=== PATIENT | female | born 1985 | race Caucasian/White ===

== ENCOUNTER 2017-10-29 12:30 | Outpatient (RCR) | payer BC, MEDICAID, SELFPAY | END 2017-11-09 23:59 | LOC: DC 12:30 | PROVIDERS: Visit Provider Obstetrics & Gynecology | DX: O24.410 Gestational diabetes mellitus in pregnancy, diet controlled (principal); Z71.3 Dietary counseling and surveillance | CPT/HCPCS: 97802; G0108 ==

== ENCOUNTER 2018-04-21 11:45 | Outpatient (CLI) | payer BC, MEDICAID, SELFPAY ==
[2018-04-21 11:59] VITALS: BMI 40.1
[2018-04-21] MEDS: Betamethasone/Betamethasone 30 MG/5 ML Vial 12 MG IM (12:20)
[2018-04-21] MEDS: Lactated Ringers 1,000 ML 999 ML IV (12:21)
[2018-04-21 13:06] LABS: Bedside Glucose 94 mg/dL (70-110)
[2018-04-21 13:53] LABS: Group B Strep DNA By PCR POSITIVE (Negative); Probe Check PASS
[2018-04-21 14:55] LABS: Absolute Lymphocyte Count 0.75 X10^3/ul (0.83-4.51); Absolute Neutrophil Count 9.2 X10^3/uL (2.0-7.7); Basophil# 0.01 X10^3/uL; Basophil% 0.1 % (0-1); Eosinophil# 0.01 X10^3/uL; Eosinophils% 0.1 % (0-5); Hematocrit 34.3 % (37-47); Hemoglobin 10.2 g/dl (12.0-15.0); Lymphocyte # 0.75 X10^3/ul (4.0); Lymphocyte % 7.3 % (19-41); Mean Corp Hgb Conc 29.7 g/gl (32-36); Mean Corpuscular Hgb 22.2 pg (27.0-32.0); Mean Corpuscular Volume 74.7 fL (81-99); Mean Platelet Vol. 9.6 fl (6.2-12.0); Monocyte# 0.25 X10^3/uL; Monocyte% 2.4 % (0-10); Neutrophil # 9.23 X10^3/uL (2.7-7.7); Neutrophil % 89.9 % (47-70); POSITIVE COUNT NO; POSITIVE DIFFERENTIAL NO; POSITIVE MORPHOLOGY YES; Platelet Count 238 K/mm3 (150-450); RBC Distribution Width CV 14.5 % (11.6-14.6); RBC Distribution Width SD 39.3 fl (35.1-43.9); Red Blood Count 4.59 M/mm3 (4.2-5.4); White Blood Count 10.3 K/mm3 (4.4-11.0)
[2018-04-21 14:56] LABS: Differential Indicated SCAN CRITERIA MET
[2018-04-21 15:17] LABS: Polychromasia RARE
[2018-04-21] MEDS: Insulin Lispro 100 UNIT/ML INSULN.PEN 6 UNIT SC (15:17)
[2018-04-21 15:18] LABS: Anisocytosis RARE
[2018-04-21 15:42] LABS: ALB/GLOB Ratio 0.6 RATIO (0.9-2.4); AST(SGOT) 27 U/L (15-37); Alanine Aminotransfer ALT/SGPT 46 U/L (13-56); Albumin, Serum 2.7 g/dL (3.2-5.0); Alkaline Phosphatase 115 U/L (45-117); Anion Gap 13 (5-15); BUN 7 mg/dL (7-18); BUN/Creat Ratio 10.5 RATIO (10-20); Calcium,Total 9.2 mg/dL (8.5-10.1); Chloride 104 mmol/L (98-107); Creatinine, Serum 0.67 mg/dL (0.55-1.02); EST Glomerular Filtration Rate 110 mL/min (>60); Est Glom Filt Rate - Afr Amer 133 mL/min (>60); Estimated Creatinine Clearance 123.85 ml/min; Globulin 4.3 g/dL (2.2-4.2); Glucose 87 mg/dL (74-106); Potassium 3.7 mmol/L (3.5-5.1); Sodium Level 139 mmol/L (136-145)
[2018-04-21 16:13] LABS: Partial Thromboplast Time 28.6 Seconds (24.1-36.2)
[2018-04-21 16:41] LABS: Fibrinogen 512 mg/dl (203-444)
[2018-04-21 17:26] LABS: Bedside Glucose 195 mg/dL (70-110)
[2018-04-21] MEDS: Insulin Lispro 100 UNIT/ML INSULN.PEN 8 UNIT SC (17:47)
--- NOTE | 2018-04-21 17:53 | PCM.HP.OB ---
History Date of Admission: 04/21/18 Final MATEO: 05/28/18 Final MATEO Source: US <20 weeks Gestational age: 34 Weeks and 5 Days History of this : This is a 32 year-old, G [], P [], at weeks gestational age. Allergies No Known Allergies Allergy (Verified 04/21/18 11:59) Home Medications: Home Medications Insulin Aspart [Novolog Flexpen ([facility])] units SC BIDCM 04/21/18 Insulin NPH Human [Humulin N ([facility])] 0 units SC BIDAC 04/21/18 insulin, vitamin Smoking Status: Former smoker Alcohol: None Number of Fetus(es): 1 Heart Tracing: Normal baseline, moderate variability, spontaneous accelerations. No decelerations. Tocometer shows contractions every 2 minutes TOCO Analysis: ctxs q 2-3 min, some mild, some moderate History Past Pregnancies: Past Pregnancies Delivery Date Name GA/Weeks Outcome Route Weight Gender Labor Length Anesthesia Delivery Location Provider FOB Expected Infant Delivery Method: Scheduled Section Review of Systems Constitutional: Denies: Anorexia, Chills, Fever Eyes: Denies: Blurred vision Cardiovascular: Reports: Edema - 1+. 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 High risk multigravid patient. Maternal obesity with BMI of 40. She was observed on labor and delivery for threatened labor. At this point there is no evidence of active labor, she has not had a cervical change. Abruption labs are normal. She continues to contract, they did improve for a while but now they are worsening again. We will continue to observe her. She will get betamethasone in anticipation of possible delivery. She has known polyhydramnios with NATHAN of 31.6. In addition the estimated weight is greater than 99th percentile. She understands this puts her at increased risk for labor. She does plan a repeat section. At this point, with the significant discomfort and contraction she is having, we would consider amnio reduction. Risks benefits and alternatives to this have been discussed, her questions were answered to her satisfaction. We will likely proceed with this tomorrow and then observe her for several hours afterwards. Gestational diabetes class A2. Patient has recently been started on short acting insulin. Will increase her dosing and cover as needed postprandial as we will anticipate some elevated blood sugars after the betamethasone administration. We have not been able to obtain tight control yet, but will aim for this as soon as her blood sugar stabilized after the betamethasone. She understands we do not want to overcorrect and have hypoglycemia. We will give SCDs for DVT prophylaxis. Activity as tolerated. Recheck cervix prn increased contractions, decels or SROM. Patient understands adn agrees w/ plan NST qshift or prn
--- NOTE | 2018-04-21 18:02 | HP.PCM_ITS ---
History Date of Admission: 04/21/18 Final MATEO: 05/28/18 Final MATEO Source: US <20 weeks Gestational age: 34 Weeks and 5 Days History of this : This is a 32 year-old, G [], P [], at weeks gestational age. Allergies No Known Allergies Allergy (Verified 04/21/18 11:59) Home Medications: Home Medications Insulin Aspart [Novolog Flexpen ([facility])] units SC BIDCM 04/21/18 Insulin NPH Human [Humulin N ([facility])] 0 units SC BIDAC 04/21/18 insulin, vitamin Smoking Status: Former smoker Alcohol: None Number of Fetus(es): 1 Heart Tracing: Normal baseline, moderate variability, spontaneous accelerations. No decelerations. Tocometer shows contractions every 2 minutes TOCO Analysis: ctxs q 2-3 min, some mild, some moderate History Past Pregnancies: Past Pregnancies Delivery Date Name GA/Weeks Outcome Route Weight Gender Labor Length Anesthesia Delivery Location Provider FOB Expected Infant Delivery Method: Scheduled Section Review of Systems Constitutional: Denies: Anorexia, Chills, Fever Eyes: Denies: Blurred vision Cardiovascular: Reports: Edema - 1+. 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 High risk multigravid patient. Maternal obesity with BMI of 40. She was observed on labor and delivery for threatened labor. At this point there is no evidence of active labor, she has not had a cervical change. Abruption labs are normal. She continues to contract, they did improve for a while but now they are worsening again. We will continue to observe her. She will get betamethasone in anticipation of possible delivery. She has known polyhydramnios with NATHAN of 31.6. In addition the estimated weight is greater than 99th percentile. She understands this puts her at increased risk for labor. She does plan a repeat section. At this point, with the significant discomfort and contraction she is having, we would consider amnio reduction. Risks benefits and alternatives to this have been discussed, her questions were answered to her satisfaction. We will likely proceed with this tomorrow and then observe her for several hours afterwards. Gestational diabetes class A2. Patient has recently been started on short acting insulin. Will increase her dosing and cover as needed postprandial as we will anticipate some elevated blood sugars after the betamethasone administration. We have not been able to obtain tight control yet, but will aim for this as soon as her blood sugar stabilized after the betamethasone. She understands we do not want to overcorrect and have hypoglycemia. We will give SCDs for DVT prophylaxis. Activity as tolerated. Recheck cervix prn increased contractions, decels or SROM. Patient understands adn agrees w/ plan NST qshift or prn
[2018-04-21] MEDS: Insulin NPH Human 100 UNITS/ML PEN 12 UNITS SC (19:57)
[2018-04-21 20:26] LABS: Bedside Glucose 175 mg/dL (70-110)
[2018-04-22] MEDS: Mag Hydrox/Al Hydrox/Simeth 30 ML UDC PO (00:18)
[2018-04-22] MEDS: 0.9% Saline Lock 10 ML Syringe IV ×3 (01:25→11:16)
[2018-04-22] MEDS: Nalbuphine 10 MG/ML Ampul IV ×2 (02:00→11:16)
[2018-04-22] MEDS: Insulin NPH Human 100 UNITS/ML PEN 12 UNITS SC (07:38)
[2018-04-22 07:46] LABS: Bedside Glucose 118 mg/dL (70-110)
[2018-04-22] MEDS: Insulin Lispro 100 UNIT/ML INSULN.PEN 8 UNIT SC ×2 (08:21→17:51)
[2018-04-22 11:01] LABS: Bedside Glucose 126 mg/dL (70-110)
--- NOTE | 2018-04-22 11:14 | OP.PCM_ITS ---
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 The nonstress test was reactive. She continued to come contractions overnight. Risks benefits and alternatives to amnio reduction have been discussed with the patient, her questions were answered to her satisfaction she desired to proceed. A brief ultrasound was done which revealed a right sided anterior placenta, vertex fetus, and a pocket in the right mid abdomen where there was no placenta that would be adequate for pneumocentesis. Timeout was performed. The patient was prepped with ChloraPrep and drapes were placed around. A small amount of local 1% lidocaine with dilute epinephrine solution was used in the skin for anesthesia. A 20-gauge spinal needle was introduced into the uterine fundus under direct visualization. The first 2 attempts I made I was up against the arm and elbow. I then removed the site slightly more lateral and inferior and was able to access a large pocket of fluid. A small amount of clear yellow straw-colored fluid was returned in the syringe. The Vacutainer was then readied and tubing connected to the needle. Collected approximately 1200 cc of slightly cloudy straw-colored fluid. At that point the needle began to rest up against the side and the flow stopped. The needle was removed without difficulty. The patient tolerated the procedure with some moderate discomfort. She was given 1 dose of 10 mg Nubain IV postoperatively for discomfort. heart tones were 144 bpm during the middle of the procedure. They were 140 bpm immediately following the procedure and the patient was placed on the external monitor for 1 hour at which time if she is not in active labor and the heart tones are category 1 monitoring may resume to twice daily testing. Grafts/Implants Used: none - Complications none - Admit VTE Documentation VTE Present on Admission: No VTE Mechan Device Prophylaxis: SCD's Reason prophylaxis not ordered:: Procedure Not Indicated
--- NOTE | 2018-04-22 11:16 | PCM.PN.OB ---
Subjective: Contractions varied overnight. They were very intense at approximate 1:30 AM. She received some Nubain at that time. Afterwards the contractions were somewhat decreased in intensity but remained every 2-3 minutes. This morning they began to get more intense again. She had no gross vaginal bleeding or leaking of fluid. Had good movement. She had one emesis this morning. - Physical Exam General: Alert, Cooperative, No apparent distress Abdomen: Soft, Non Tender - Before procedure, Gravid, Obese, - - Large for gestational age Extremities: Edema - 1+ Skin: No rashes Psych/Mental Status: Normal Affect, Appropriate Weight: 120.2 kg Body Mass Index (BMI) 40.1 Microbiology Past 72 Hours 04/21/18 13:15 Urine Culture - Preliminary Urine, Clean Catch Culture exhibits no growth. Laboratory Tests Past 24 Hrs 04/21/18 04/21/18 04/21/18 12:42 14:35 14:35 WBC 10.3 RBC 4.59 Hgb 10.2 L Hct 34.3 L MCV 74.7 L MCH 22.2 L MCHC 29.7 L RDW 14.5 RDW Differential 39.3 Plt Count 238 MPV 9.6 Immature Gran % (Auto) 0.200 Neut % (Auto) 89.9 H Lymph % (Auto) 7.3 L [place] % (Auto) 2.4 Eos % (Auto) 0.1 Baso % (Auto) 0.1 Absolute Neuts (auto) 9.2 H Absolute Lymphs (auto) 0.75 L Total Counted Not Reportable Polychromasia RARE Anisocytosis RARE APTT 28.6 Fibrinogen 512 H Sodium Potassium Chloride Carbon Dioxide Anion Gap BUN Creatinine Estim Creat Clear Calc Est GFR (MDRD) Af Amer Est GFR (MDRD) Non-Af BUN/Creatinine Ratio Glucose Calcium Total Bilirubin AST ALT Alkaline Phosphatase Total Protein Albumin Globulin Albumin/Globulin Ratio Group B Strep DNA POSITIVE H Specimen Comment Not Reportable Blood Type Antibody Screen 04/21/18 04/21/18 14:35 14:35 WBC RBC Hgb Hct MCV MCH MCHC RDW RDW Differential Plt Count MPV Immature Gran % (Auto) Neut % (Auto) Lymph % (Auto) [place] % (Auto) Eos % (Auto) Baso % (Auto) Absolute Neuts (auto) Absolute Lymphs (auto) Total Counted Polychromasia Anisocytosis APTT Fibrinogen Sodium 139 Potassium 3.7 Chloride 104 Carbon Dioxide 22.0 Anion Gap 13 BUN 7 Creatinine 0.67 Estim Creat Clear Calc 123.85 Est GFR (MDRD) Af Amer 133 Est GFR (MDRD) Non-Af 110 BUN/Creatinine Ratio 10.5 Glucose 87 Calcium 9.2 Total Bilirubin 0.80 AST 27 ALT 46 Alkaline Phosphatase 115 Total Protein 7.0 Albumin 2.7 L Globulin 4.3 H Albumin/Globulin Ratio 0.6 L Group B Strep DNA Specimen Comment Blood Type A POSITIVE Antibody Screen NEGATIVE POC Glucose 04/22/18 04/22/18 04/21/18 10:53 07:35 19:52 POC Glucose 126 H 118 H 175 H 04/21/18 04/21/18 17:16 12:56 POC Glucose 195 H 94 Medical Necessity - Tobacco Use Smoking Status: Former smoker Assessment/Plan Nonstress test: Baseline normal, variability moderate, accelerations noted. Category 1 and reactive. Tocometer shows contractions every 2-4 minutes. Brief ultrasound was done which revealed vertex fetus. Large amount of amniotic fluid. Placenta is right sided and anterior. There is a large pocket of fluid amniotic fluid in the left mid abdomen that is accessible. 32-year-old 3 para 2 female at 35-6/7 weeks with high risk multigravida . 1. Patient was some evidence of labor. She has had mild cervical change. I reexamined the patient after the amniocentesis and her cervix is now 3, 70, -4, ballots in mid position. It is now soft to medium consistency. Contractions increased in an decrease in intensity. Will recheck abruption labs today. Status post betamethasone ?1. Due for second dose today at approximately 12:30 PM. If she continues to contract with resulting cervical change, or has any evidence of abruption, or compromise after the amniocentesis we will proceed with repeat section. Patient states understanding and agreement with the plan. Patient is receiving 1 dose of Nubain now for pain control after the amniocentesis. Will send amniocentesis fluid for L/S ratio to help assess lung maturity. This will not change our immediate plan for delivery, but is just 1 more piece of information when we are assessing the risks and benefits of delivery versus expectant management. Special care nursery is aware of the patient's presence on labor and delivery. No immediate plans for delivery. Stational diabetes on insulin. Blood sugars are doing fairly well considering she has had betamethasone. We will continue to adjust insulin as needed.
[2018-04-22] MEDS: Betamethasone/Betamethasone 30 MG/5 ML Vial 12 MG IM (11:44)
[2018-04-22] MEDS: Insulin Lispro 100 UNIT/ML INSULN.PEN 6 UNIT SC (12:20)
[2018-04-22] MEDS: Prenatal Vits Tablet 1 TABLET PO (14:34)
[2018-04-22 14:45] LABS: Bedside Glucose 161 mg/dL (70-110)
--- NOTE | 2018-04-22 17:56 | PCM.PN.OB ---
Subjective: Contractions not quite as strong as before. Abdomen less sore than after amnio. Some mucous discharge. Good Fm. Feels achy/tired - Physical Exam General: Alert, Cooperative, No apparent distress Abdomen: Soft, Non-Distended, Gravid - LGA, Tender - mildly, no echymosis Extremities: Edema - 1+ Skin: No rashes Comment: cervix 3/70/-4, ballots, moderate consistency Weight: 120.2 kg Body Mass Index (BMI) 40.1 Microbiology Past 72 Hours 04/21/18 13:15 Urine Culture - Preliminary Urine, Clean Catch Culture exhibits no growth. POC Glucose 04/22/18 04/22/18 04/22/18 14:38 10:53 07:35 POC Glucose 161 H 126 H 118 H 04/21/18 19:52 POC Glucose 175 H Medical Necessity - Tobacco Use Smoking Status: Former smoker Assessment/Plan HD#2 threatened PTL. No further cervical change. Ok to d/c home. Cont. insulin. F/u in 2 days or prn. 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 D/ wher likely she will contract until delivery but hopefully after amnio reduction will contract less, feel more comfortable for at least a week or so or remainder of .
--- NOTE | 2018-04-22 18:00 | PN.OBGYN_ITS ---
Subjective: Contractions not quite as strong as before. Abdomen less sore than after amnio. Some mucous discharge. Good Fm. Feels achy/tired - Physical Exam General: Alert, Cooperative, No apparent distress Abdomen: Soft, Non-Distended, Gravid - LGA, Tender - mildly, no echymosis Extremities: Edema - 1+ Skin: No rashes Comment: cervix 3/70/-4, ballots, moderate consistency Weight: 120.2 kg Body Mass Index (BMI) 40.1 Microbiology Past 72 Hours 04/21/18 13:15 Urine Culture - Preliminary Urine, Clean Catch Culture exhibits no growth. POC Glucose 04/22/18 04/22/18 04/22/18 14:38 10:53 07:35 POC Glucose 161 H 126 H 118 H 04/21/18 19:52 POC Glucose 175 H Medical Necessity - Tobacco Use Smoking Status: Former smoker Assessment/Plan HD#2 threatened PTL. No further cervical change. Ok to d/c home. Cont. insulin. F/ u in 2 days or prn. 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 D/ wher likely she will contract until delivery but hopefully after amnio reduction will contract less, feel more comfortable for at least a week or so or remainder of .
--- NOTE | 2018-04-22 18:03 | PCM.DC ---
You will use the following diet at home:: Regular - Your diabetic diet as previously prescribed Your food should be the consistency of: Regular Discharge Activity: Return to Normal Activity, May Drive Return to work on:: 04/24/18 May resume sexual activity in: 2 weeks Lifting Restrictions: 20 ls Call your doctor if your incision/area has: Sudden Increased Bleeding Call your doctor if you observe: - - Call if vaginal bleeding, leaking of fluid or other concerns. If your blood sugar is over 200, give yourself 4 units of short acting insulin and recheck it in 1 hr. If it is still above 200, repeat and recheck blood sugar q 1 hr. If it is still > 200 call my office Instructions: Understanding Labor Allergies/Adverse Reactions: Allergies No Known Allergies Allergy (Verified 04/21/18 11:59) Medications to take at Discharge Insulin Lispro [Humalog KwikPen] 8 unit SC BREAKFAST insuln.pen 04/22/18 Insulin Lispro [Humalog KwikPen] 8 unit SC LUNCH insuln.pen 04/22/18 Insulin Lispro [Humalog KwikPen] 10 unit SC DINNER insuln.pen 04/22/18 Insulin NPH Human [Humulin N Pen] 12 units SC BID@0730,2000 pen 04/22/18 Vits [Prenatabs FA ] 1 tablet PO DAILY@1200 tablet 04/22/18 Primary Care Physician: Care Physician,No Primary [Primary Care Provider] - Test Results: Test results from this visit will be discussed in further detail at your follow-up appointment, if applicable. Please Follow Up With: Liliana Dominguez MD - [phone] When: 2 days or as needed
--- NOTE | 2018-04-22 18:06 | DCINST_ITS ---
You will use the following diet at home:: Regular - Your diabetic diet as previously prescribed Your food should be the consistency of: Regular Discharge Activity: Return to Normal Activity, May Drive Return to work on:: 04/24/18 May resume sexual activity in: 2 weeks Lifting Restrictions: 20 ls Call your doctor if your incision/area has: Sudden Increased Bleeding Call your doctor if you observe: - - Call if vaginal bleeding, leaking of fluid or other concerns. If your blood sugar is over 200, give yourself 4 units of short acting insulin and recheck it in 1 hr. If it is still above 200, repeat and recheck blood sugar q 1 hr. If it is still > 200 call my office Instructions: Understanding Labor Allergies/Adverse Reactions: Allergies No Known Allergies Allergy (Verified 04/21/18 11:59) Medications to take at Discharge Insulin Lispro [Humalog KwikPen] 8 unit SC BREAKFAST insuln.pen 04/22/18 Insulin Lispro [Humalog KwikPen] 8 unit SC LUNCH insuln.pen 04/22/18 Insulin Lispro [Humalog KwikPen] 10 unit SC DINNER insuln.pen 04/22/18 Insulin NPH Human [Humulin N Pen] 12 units SC BID@0730,2000 pen 04/22/18 Vits [Prenatabs FA ] 1 tablet PO DAILY@1200 tablet 04/22/18 Primary Care Physician: Care Physician,No Primary [Primary Care Provider] - Test Results: Test results from this visit will be discussed in further detail at your follow- up appointment, if applicable. Please Follow Up With: Liliana Dominguez MD - [phone] When: 2 days or as needed
== END 2018-04-22 18:35 | disposition home or self-care (01) ==
LOC: WPOUT 11:52 → WP 11:52
PROVIDERS: Visit Provider Obstetrics & Gynecology
DX: O40.3XX0 Polyhydramnios, third trimester, not applicable or unspecified (principal); O60.03 Preterm labor without delivery, third trimester; O24.414 Gestational diabetes mellitus in pregnancy, insulin controlled; O36.63X0 Maternal care for excessive fetal growth, third trimester, not applicable or unspecified; O99.213 Obesity complicating pregnancy, third trimester; Z68.41 Body mass index [BMI] 40.0-44.9, adult; Z87.891 Personal history of nicotine dependence; Z3A.35 35 weeks gestation of pregnancy
CPT/HCPCS: 96361 ×2; 96374; 96376; 36415; 59000; 59025; 59050; 76815; 80053; 82962; 85025; 85384; 85730; 86850; 86900; 87086; 87088; 87653; 96372; 99218; J7120; A4216; G0378; J0702

== ENCOUNTER 2018-04-26 13:25 | Outpatient (CLI) | payer BC, MEDICAID, SELFPAY ==
[2018-04-26 13:51] VITALS: BMI 40.4
[2018-04-26 14:16] LABS: Bedside Glucose 195 mg/dL (70-110)
--- NOTE | 2018-04-27 10:44 | OB.TRI.NOTE ---
History of Present Illness Date of Service: 04/26/18 Was patient seen by the physician?: No Reason For Visit: RULE OUT LABOR Date of Service: 04/26/18 Final MATEO: 05/28/18 Final MATEO Source: US <20 weeks Gestational age: 35 Weeks and 4 Days Allergies No Known Allergies Allergy (Verified 04/26/18 14:02) NST - FHR Rate Baby A Baseline: 140-150 bpm Variability:: Minimal - at times, Moderate Accelerations:: 15 x 15 Decelerations:: None NST Reactive:: Yes FHR Category:: Category I - before d/c Uterine Activity:: irreg ctxs Impression/Plan 32-year-old 3 para 2 female at 35-3/7 weeks high risk multigravid gestation with threatened labor. Contractions decreased in intensity upon arrival. There is no significant cervical change. Patient was comfortable going home after I spoke with her via telephone. She had betamethasone injections on 04/21 and 04/22/2018. History of 2 previous sections, patient would elect for repeat section when indicated or when in labor. Gestational diabetes on insulin, we discussed her blood sugar readings. Will increase her morning and in our by 2 units each, and her lunchtime are by 2 units. She will forward me her blood sugars in 2-3 days.
== END 2018-04-26 15:29 | disposition home or self-care (01) ==
LOC: WPOUT 13:42 → WP 13:43
PROVIDERS: Visit Provider Obstetrics & Gynecology
DX: O60.03 Preterm labor without delivery, third trimester (principal); O24.414 Gestational diabetes mellitus in pregnancy, insulin controlled; Z3A.35 35 weeks gestation of pregnancy; O34.219 Maternal care for unspecified type scar from previous cesarean delivery
CPT/HCPCS: 59025; 59050; 82962; 99218; G0378

== ENCOUNTER 2018-05-03 21:10 | Inpatient (IN) | payer BC, MEDICAID, SELFPAY ==
--- NOTE | 2018-05-03 21:26 | PCM.HP.OB ---
History Date of Admission: 04/21/18 Final MATEO: 05/28/18 Final MATEO Source: US <20 weeks Gestational age: 36 Weeks and 3 Days History of this : This is a 32 year-old, G 3P2 at 36.3 weeks gestational age presents to SROM at home- clear fluid. pt with history of polyhydramnios s/p amniotic fluid reduction and GDMA 2 on insulin. Medical History: Medical History (Last Updated 05/03/18 @ 21:28 by Viola Dejesus MD) Gestational diabetes O24.419 Polyhydramnios O40.9XX0 Previous section complicating O34.219 Allergies No Known Allergies Allergy (Verified 04/26/18 14:02) Home Medications: Home Medications Insulin Lispro [Humalog KwikPen] 10 unit SC BREAKFAST 04/26/18 Insulin Lispro [Humalog KwikPen] 10 unit SC LUNCH 04/26/18 Insulin Lispro [Humalog KwikPen] 12 unit SC DINNER 04/26/18 Insulin NPH Human [Humulin N Pen] 12 units SC DAILY 04/26/18 Insulin NPH Human [Humulin N Pen] 14 units SC DAILY 04/26/18 Vits [Prenatabs FA ] 1 tablet PO DAILY@1200 04/26/18 Smoking Status: Former smoker Alcohol: None Number of Fetus(es): 1 History Past Pregnancies: Past Pregnancies Delivery Date Name GA/Weeks Outcome Route Weight Infant Gender Labor Length Anesthesia Delivery Location Provider FOB Labs: A+, HIV neg, HEPB neg, Rub immune, syphilis negative Expected Infant Delivery Method: Repeat Section, ADAM Section Physical Exam General: Alert, Oriented x3 Abdomen: Soft, Gravid Estimated gestational size: Appropriate for gestational size Presentation: Cephalic Cervix Dilation (cm): 4 - grossy ruptured, clear Station: -3 Assessment/Plan This is a 32 year-old, at 36.3 weeks gestational age with SROM at home- GDMA2 on insulin, Polyhydramnios 1) admit to L&D 2) Repeat C/s - ADAM- Dr. Dominguez notified 3) Monitor FHR/FITZ 4) Standard pre op orders
[2018-05-03] MEDS: Lactated Ringers 1,000 ML 999 ML IV (21:43)
[2018-05-03 21:56] LABS: Absolute Lymphocyte Count 1.71 X10^3/ul (0.83-4.51); Absolute Neutrophil Count 7.9 X10^3/uL (2.0-7.7); Basophil# 0.02 X10^3/uL; Basophil% 0.2 % (0-1); Eosinophil# 0.04 X10^3/uL; Eosinophils% 0.4 % (0-5); Hematocrit 30.7 % (37-47); Hemoglobin 9.3 g/dl (12.0-15.0); Lymphocyte # 1.71 X10^3/ul (4.0); Lymphocyte % 16.4 % (19-41); Mean Corp Hgb Conc 30.3 g/gl (32-36); Mean Corpuscular Hgb 21.8 pg (27.0-32.0); Mean Corpuscular Volume 72.1 fL (81-99); Mean Platelet Vol. 9.2 fl (6.2-12.0); Monocyte# 0.76 X10^3/uL; Monocyte% 7.3 % (0-10); Neutrophil # 7.85 X10^3/uL (2.7-7.7); Neutrophil % 75.4 % (47-70); Platelet Count 236 K/mm3 (150-450); RBC Distribution Width CV 15.1 % (11.6-14.6); RBC Distribution Width SD 40.3 fl (35.1-43.9); Red Blood Count 4.26 M/mm3 (4.2-5.4); White Blood Count 10.4 K/mm3 (4.4-11.0)
[2018-05-03 22:03] LABS: Differential Indicated SCAN CRITERIA MET; POSITIVE COUNT NO; POSITIVE DIFFERENTIAL NO; POSITIVE MORPHOLOGY YES
[2018-05-03] MEDS: Sodium Citrate/Citric Acid 30 ML UDC PO (22:08)
[2018-05-03] MEDS: Cefazolin 2 GM in 0.9% Normal Saline 100 ML IV (22:17)
[2018-05-03 22:23] LABS: Anisocytosis RARE; Hypochromasia RARE; Microcytosis RARE; Platelet Estimate ADEQUATE (ADEQ)
[2018-05-03] MEDS: Oxytocin 30 units/NS 500 ml 30 UNITS/500 ML IV.SOLN 167 UNITS IV (22:41)
--- NOTE | 2018-05-03 23:00 | PLAC_PTH ---
PATIENT: ZAIRA LEE LOC: [facility] U#:[id number] AGE/SX: 32/F ROOM: WP004 RE05/03/[address]: Dr. Liliana Dominguez MD : 1985 BED: 1 DIS: 05/07/2018 SPEC #: [id number] RECD: 05/04/18 03:42 STATUS: DARCY RENuria #: [id number] SANDRITA: 05/03/18 23:[address]: Liliana Dominguez DEPT: SURGICAL PATHOLOGY RECD BY: Ketan Austin ENTERED: 05/05/18 08:37 SP TYPE: PLACENTA OTHR DR: No Primary Care Phys Tissues: Placenta, NOS Procedures: Surgery Specimen Level V HEADER OPERATION: Repeat section PRE-OP DIAGNOSIS: Premature rupture of membranes TISSUE SUBMITTED: Placenta MICROSCOPIC DIAGNOSIS Beckwith placenta (682 gm): Umbilical cord - trivascular with no inflammation. Placental membranes - no pathologic change. Placental disc - foci of organizing intraparenchymal hemorrhage, Dario-Felix change and increased intraparenchymal fibrin plaques. AM:mariely 05/07/18 MICROSCOPIC DESCRIPTION Slides are reviewed. GROSS DESCRIPTION SPECIMEN: PLACENTA / CLINICAL INFORMATION: A. Weight: 4.391 kg B. Gestational Age: 36 weeks C. Sex: Female PLACENTAL WEIGHT (POST FIXATION): 682 gm PLACENTAL DIMENSIONS: 18 x 16 x 4 cm PLACENTAL SHAPE: Usual ovoid PLACENTAL WEIGHT FOR GESTATIONAL AGE: Over 10-99th percentile MEMBRANES - Present A. Insertion: The membranes are inserted one-third of placenta about 2 cm away from the margin. B. Site of rupture from edge: At edge of placental disc C. Color of membrane: Ambriz-davis D. Abnormalities: None UMBILICAL CORD - Present A. Color: Ambriz-davis B. Insertion: Central C. Length: 23 cm D. Diameter: 1.4 cm E. Number of vessels: Three F. Abnormalities: None PLACENTAL DISC - Present A. Color of surface: Ambriz-davis B. surface abnormalities: The surface shows extensive submembranous hematoma C. Maternal cotyledons: Intact with minimal tears D. Attached retro placental clot: No clot E. Cut surface: Dark red and spongy F. Lesions: Sections reveal a ambriz, hemorrhagic area measuring 1.5 cm in greatest dimension. G. Separate clot: Absent SECTIONS SUBMITTED: 1. Membrane roll 2. Cord, maternal end, insertion of membrane away from the margin 3. Cord, end 4. Placental disc, and maternal surfaces 5. Placental disc, and maternal surfaces, lesion 6. Placental disc, and maternal surfaces SJ:mariely 05/06/18 TC:5 CPT: 06779
[2018-05-03] MEDS: Ketorolac 30 MG/ML Syringe IV (23:12)
--- NOTE | 2018-05-03 23:17 | PCM.OB.CSR ---
Delivery Classification: ADAM Final MATEO: 05/28/18 Gestational age: 36 Weeks and 3 Days Indications for : Repeat Elective , - - labor Description of Procedure: The patient was taken to the operating room. She was prepped and draped in the dorsal supine position with a leftward tilt. A Pfannenstiel skin incision was made approximately 2 cm above the symphysis pubis and carried through to underlying layer fascia with the scalpel. The fascia was incised incised in the midline and extended laterally with the Serrano scissors. The fascia was dissected off the rectus muscles with blunt and sharp dissection. The rectus muscles were in the midline and the peritoneum was entered bluntly. The peritoneal incision was stretched and the bladder blade was placed. The uterine incision was made in a low transverse fashion with the scalpel and extended superiorly and inferiorly with blunt dissection. The amniotic membranes were ruptured bluntly and clear amniotic fluid returned. There was no significant scar tissue or intraperitoneal adhesions. The 's head was brought to the incision in the flexed position and delivered without difficulty. The remainder of the was delivered with gentle traction and fundal pressure in the standard fashion. The mouth and nares were bulb suctioned. The cord was clamped and cut as the was stimulated. Cord clamping was delayed. The was handed off to the waiting nursing staff. The placenta was delivered with fundal massage and gentle traction in the standard fashion. The uterus was exteriorized and cleared of all clots and debris. The cervix was dilated with a ring forcep. The uterine incision was closed with #1 Vicryl in a running locked fashion. A second layer of the same suture was used in an imbricating fashion. The incision was examined and was found to be hemostatic. The uterus was placed back into the peritoneal cavity and hemostasis was again confirmed. The rectus muscles were examined and any bleeding was Bovie cauterized. The parietal peritoneum and rectus muscles were closed en bloc with an 0 Vicryl running suture. The surgical teams outer gloves were then changed. The rectus fascia was examined and any bleeding was Bovie cauterized and the rectus fascia was closed with 0 PDS suture in a running standard fashion. The subcutaneous tissue was examining and any bleeding was Bovie cauterized. The subcutaneous tissue was reapproximated with 3-0 Vicryl suture. The skin was closed in a subcuticular fashion with Monocryl suture. I performed the entire procedure with assistance. All sponge, lap, and needle counts were correct. The patient was taken to her room for recovery in a stable condition. Amniotic Membrane Rupture Type: Spontaneous Amniotic Fluid Description: Clear Placenta Disposition: Sent to Pathology Drain: Gunderson to straight drain Fluids Replaced: 1500 cc Cord Entanglement: None Cord Vessel Description: 3 Vessels Esitmated Blood Loss (ml): 800 Infant Gender: Female Delayed cord clamping: Yes Pre-op Antibiotic Given: - - zithromax 500 mg Complications: None - Admit VTE Documentation VTE Present on Admission: No VTE Mechan Device Prophylaxis: SCD's VTE Pharm Prophylaxis ordered?: Yes
[2018-05-03 23:25] VITALS: BP 125/89; BP 94/47; PULSE 82; RESP 18; TEMP 36.2; O2SAT 96
[2018-05-03 23:40] VITALS: BP 125/89; BP 99/51; PULSE 96; RESP 14; O2SAT 97
[2018-05-03 23:55] VITALS: BP 125/89; BP 91/52; PULSE 100; RESP 17; O2SAT 99
[2018-05-04] VITALS (25 sets, daily range): BP systolic 93–126; BP diastolic 52–89; PULSE 89–122; RESP 16–20; TEMP 36.4–37.1; O2SAT 96–100; BMI 37.5
[2018-05-04] MEDS: Methylergonovine 0.2 MG/ML Ampul IM (00:08)
[2018-05-04 00:31] LABS: Bedside Glucose 106 mg/dL (70-110)
[2018-05-04 01:21] LABS: Bedside Glucose 119 mg/dL (70-110)
[2018-05-04] MEDS: Ondansetron ODT 4 MG Tablet PO (02:10)
[2018-05-04] MEDS: Lactated Ringers 1,000 ML 100 ML IV (02:55)
[2018-05-04] MEDS: Metoclopramide 10 MG/2 ML Vial IV (03:00)
[2018-05-04 03:51] LABS: Pathology Specimen OB SEE PATHOLOGY REPORT
--- NOTE | 2018-05-04 04:40 | NURSING ---
Late entry: During recovery at 0000 this RN expressed grapefruit sized clot from pt with fundal massage-uterus was at umbilicus and to the right at this time, after clot expressed it was again midline and at umbilicus. Pt received methergine 0.2mg at 0008. Then at 0055 this RN discovered that patient had passed a golf ball sized clot. Uterus again at umbilicus and firm, no trickling or additional bleeding with massage. Clots and melonie pad was weighed and equaled 799mL of blood total.
[2018-05-04] MEDS: Enoxaparin 40 MG/0.4 ML Syringe SC (06:36)
[2018-05-04] MEDS: Ketorolac 30 MG/ML Syringe IV ×2 (06:37→11:49)
[2018-05-04 07:00] LABS: Hematocrit 25.1 % (37-47); Hemoglobin 7.6 g/dl (12.0-15.0); Mean Corp Hgb Conc 30.3 g/gl (32-36); Mean Corpuscular Hgb 21.9 pg (27.0-32.0); Mean Corpuscular Volume 72.3 fL (81-99); Mean Platelet Vol. 9.6 fl (6.2-12.0); Platelet Count 199 K/mm3 (150-450); RBC Distribution Width CV 15.2 % (11.6-14.6); RBC Distribution Width SD 41.1 fl (35.1-43.9); Red Blood Count 3.47 M/mm3 (4.2-5.4); White Blood Count 12.2 K/mm3 (4.4-11.0)
[2018-05-04 07:01] LABS: Scan Indicated on CBC? Y/N YES- FLAGS NOTED
[2018-05-04 07:25] LABS: Differential Comment SCAN
[2018-05-04 07:26] LABS: Bedside Glucose 98 mg/dL (70-110)
--- NOTE | 2018-05-04 10:43 | PCM.PN.OB ---
Subjective: pt seen at bedside, doing well. reports pain is well controlled. pt denies CP, SOB, dizziness, or palpitations. - Physical Exam General: Alert, Oriented x3 Abdomen: Soft, Non-Distended, - - fundus firm , dressing intact Extremities: No Calf Tenderness Vital Signs Temp Pulse Resp BP Pulse Ox 98.4 F 102 H 18 124/68 H 99 05/04/18 08:30 05/04/18 08:30 05/04/18 09:49 05/04/18 08:30 05/04/18 09:49 Oxygen Delivery Method Room Air Weight: 112 kg Body Mass Index (BMI) 37.5 Intake and Output for Last 24 Hours 05/02/18 05/03/18 05/04/18 23:59 23:59 23:59 Intake Total 3255 / 3255 Output Total 1699 / 1699 200 / 200 Balance -1699 / -1699 3055 / 3055 Laboratory Tests Past 24 Hrs 05/03/18 05/03/18 05/04/18 21:43 21:43 06:35 WBC 10.4 12.2 H RBC 4.26 3.47 L Hgb 9.3 L 7.6 L Hct 30.7 L 25.1 L MCV 72.1 L 72.3 L MCH 21.8 L 21.9 L MCHC 30.3 L 30.3 L RDW 15.1 H 15.2 H RDW Differential 40.3 41.1 Plt Count 236 199 MPV 9.2 9.6 Immature Gran % (Auto) 0.300 Neut % (Auto) 75.4 H Lymph % (Auto) 16.4 L Esmeralda % (Auto) 7.3 Eos % (Auto) 0.4 Baso % (Auto) 0.2 Absolute Neuts (auto) 7.9 H Absolute Lymphs (auto) 1.71 Total Counted Not Reportable Differential Comment SCAN Platelet Estimate ADEQUATE Hypochromasia RARE Anisocytosis RARE Microcytosis RARE Blood Type A POSITIVE Antibody Screen NEGATIVE POC Glucose 05/04/18 05/04/18 05/03/18 07:08 01:15 22:04 POC Glucose 98 119 H 106 Medical Necessity - Tobacco Use Smoking Status: Former smoker Assessment/Plan POD#1, doing well- Acute on Chronic anemia- pt is asymptomatic routine care montior VS Repeat cbc in am- if symptomatic reviewed possible need for blood transfusion ambulation
[2018-05-04] MEDS: Senna/Docusate Sodium 1 Tablet PO ×2 (11:49→22:01)
[2018-05-04] MEDS: Naproxen 250 MG Tablet PO (18:22)
[2018-05-05] VITALS (9 sets, daily range): BP systolic 105–134; BP diastolic 45–78; PULSE 93–113; RESP 16–18; TEMP 36.3–37.7; O2SAT 97–99
[2018-05-05] MEDS: oxyCODONE 5 MG Tablet PO (03:11)
[2018-05-05] MEDS: Naproxen 250 MG Tablet PO ×2 (04:40→19:46)
[2018-05-05] MEDS: Enoxaparin 40 MG/0.4 ML Syringe SC (06:22)
[2018-05-05 07:02] LABS: Hematocrit 22.8 % (37-47); Hemoglobin 6.8 g/dl (12.0-15.0); Mean Corp Hgb Conc 29.8 g/gl (32-36); Mean Corpuscular Hgb 22.1 pg (27.0-32.0); Mean Corpuscular Volume 74.3 fL (81-99); Mean Platelet Vol. 9.1 fl (6.2-12.0); Platelet Count 238 K/mm3 (150-450); RBC Distribution Width CV 15.1 % (11.6-14.6); RBC Distribution Width SD 39.1 fl (35.1-43.9); Red Blood Count 3.07 M/mm3 (4.2-5.4); White Blood Count 10.1 K/mm3 (4.4-11.0)
[2018-05-05 07:06] LABS: Scan Indicated on CBC? Y/N YES- FLAGS NOTED
[2018-05-05 07:27] LABS: Differential Comment SCAN
--- NOTE | 2018-05-05 08:27 | PCM.PN.OB ---
Subjective: Pain well controlled, average lochia. Denies headache, lightheadedness, dizziness, palpitations or shortness of breath with ambulation. - Physical Exam General: Alert, Cooperative, No apparent distress Abdomen: Soft, Distended - Mildly, softly, Tender - Appropriately Extremities: Edema - 1+ Skin: Incision - Bandage clean dry and intact Vital Signs Temp Pulse Resp BP Pulse Ox 97.6 F L 93 16 112/67 98 05/05/18 07:30 05/05/18 07:30 05/05/18 07:30 05/05/18 07:30 05/05/18 03:14 Oxygen Delivery Method Room Air Weight: 112 kg Body Mass Index (BMI) 37.5 Intake and Output for Last 24 Hours 05/03/18 05/04/18 05/05/18 23:59 23:59 23:59 Intake Total 5195 / 5195 Output Total 1699 / 1699 1950 / 1950 Balance -1699 / -1699 3245 / 3245 Laboratory Tests Past 24 Hrs 05/05/18 06:30 WBC 10.1 RBC 3.07 L Hgb 6.8 L Hct 22.8 L MCV 74.3 L MCH 22.1 L MCHC 29.8 L RDW 15.1 H RDW Differential 39.1 Plt Count 238 MPV 9.1 Differential Comment SCAN Medical Necessity - Tobacco Use Smoking Status: Former smoker Assessment/Plan Postoperative day #2 Chronic antepartum anemia with acute blood loss anemia superimposed. Patient denies symptoms however, she was persistently tachycardic throughout the day yesterday. She is resting comfortably in bed this morning and when I checked her pulse it was 110 bpm. Will recheck hemoglobin today. Patient is trended down slightly. No evident evidence of ongoing hemorrhage. I discussed with the patient risk benefits and alternatives to blood transfusion. I recommended if she remains persistently tachycardic and/or her repeat CBC at lunchtime today is the same or lower than it was this morning, though she had 1 unit of packed red blood cells. Patient is comfortable with this plan. is breast and bottlefeeding and is in the special care nursery for hypoglycemia but is doing well per patient's report.
[2018-05-05] MEDS: Senna/Docusate Sodium 1 Tablet PO ×2 (09:42→22:15)
[2018-05-05 11:42] LABS: Hematocrit 22.5 % (37-47); Hemoglobin 6.8 g/dl (12.0-15.0); Mean Corp Hgb Conc 30.2 g/gl (32-36); Mean Corpuscular Hgb 22.4 pg (27.0-32.0); Mean Corpuscular Volume 74.3 fL (81-99); Mean Platelet Vol. 9.7 fl (6.2-12.0); Platelet Count 292 K/mm3 (150-450); RBC Distribution Width CV 15.3 % (11.6-14.6); RBC Distribution Width SD 39.8 fl (35.1-43.9); Red Blood Count 3.03 M/mm3 (4.2-5.4); Scan Indicated on CBC? Y/N YES- FLAGS NOTED; White Blood Count 9.5 K/mm3 (4.4-11.0)
[2018-05-05 12:05] LABS: Differential Comment SCANNED
[2018-05-05] MEDS: Acetaminophen 500 MG Tablet 1000 MG PO (13:09)
[2018-05-05] MEDS: DiphenhydrAMINE 25 MG Capsule 50 MG PO (13:09)
[2018-05-05] MEDS: 0.9% Normal Saline 500 ML IV.SOLN. IV (13:10)
[2018-05-05] MEDS: Bisacodyl 10 MG Suppository RECTAL (19:47)
[2018-05-06 01:20] VITALS: BP 110/63; PULSE 102; RESP 18; TEMP 36.8
[2018-05-06] MEDS: Naproxen 250 MG Tablet PO ×3 (05:09→22:08)
[2018-05-06] MEDS: Enoxaparin 40 MG/0.4 ML Syringe SC (06:27)
[2018-05-06 07:08] LABS: Hematocrit 25.5 % (37-47); Hemoglobin 7.7 g/dl (12.0-15.0); Mean Corp Hgb Conc 30.2 g/gl (32-36); Mean Corpuscular Hgb 21.8 pg (27.0-32.0); Mean Corpuscular Volume 72.2 fL (81-99); Mean Platelet Vol. 8.6 fl (6.2-12.0); Platelet Count 245 K/mm3 (150-450); RBC Distribution Width CV 16.8 % (11.6-14.6); RBC Distribution Width SD 44.3 fl (35.1-43.9); Red Blood Count 3.53 M/mm3 (4.2-5.4); White Blood Count 8.7 K/mm3 (4.4-11.0)
[2018-05-06 07:09] LABS: Scan Indicated on CBC? Y/N YES- FLAGS NOTED
[2018-05-06 08:30] VITALS: BP 145/86; PULSE 92; RESP 20; TEMP 36.7; O2SAT 98
[2018-05-06] MEDS: Docusate Sodium 100 MG Capsule PO ×2 (10:25→22:08)
--- NOTE | 2018-05-06 13:33 | PCM.PN.OB ---
Subjective: pain well controlled, average lochia. + Bm. is going well - Physical Exam General: Alert, Cooperative, No apparent distress Abdomen: Soft, Distended - mildly, softly, Tender - appropriately Extremities: Edema - 1+ Skin: Incision - bandage clean, dry and intact Vital Signs Temp Pulse Resp BP Pulse Ox 98.0 F 92 20 H 145/86 H 98 05/06/18 08:30 05/06/18 08:30 05/06/18 08:30 05/06/18 08:30 05/06/18 08:30 Oxygen Delivery Method Room Air Weight: 112 kg Body Mass Index (BMI) 37.5 Intake and Output for Last 24 Hours 05/04/18 05/05/18 05/06/18 23:59 23:59 23:59 Intake Total 5195 / 5195 470 / 470 Output Total 1950 / 1950 Balance 3245 / 3245 470 / 470 Laboratory Tests Past 24 Hrs 05/03/18 05/06/18 21:43 06:30 WBC 8.7 RBC 3.53 L Hgb 7.7 L Hct 25.5 L MCV 72.2 L MCH 21.8 L MCHC 30.2 L RDW 16.8 H RDW Differential 44.3 H Plt Count 245 MPV 8.6 Differential Comment COMMENT Crossmatch See Detail Medical Necessity - Tobacco Use Smoking Status: Former smoker Assessment/Plan POD#3 routine care doing well likely home tomorrow
[2018-05-06 14:05] VITALS: BP 122/61; PULSE 116; RESP 16; TEMP 36.7; O2SAT 98
[2018-05-06] MEDS: Ferrous Sulfate 325 MG Tablet PO (18:28)
[2018-05-06 19:30] VITALS: BP 135/77; PULSE 98; RESP 18; TEMP 36.4; O2SAT 99
[2018-05-07 01:51] VITALS: BP 129/75; PULSE 98; RESP 16; TEMP 36.4
[2018-05-07] MEDS: Enoxaparin 40 MG/0.4 ML Syringe SC (05:54)
[2018-05-07] MEDS: Naproxen 250 MG Tablet PO (05:55)
[2018-05-07] MEDS: Ferrous Sulfate 325 MG Tablet PO (08:48)
[2018-05-07 08:50] VITALS: BP 138/84; PULSE 92; RESP 18; TEMP 36.2; O2SAT 99
--- NOTE | 2018-05-07 09:02 | DCINST_ITS ---
Discharge Diet: No Restrictions Discharge Activity: May Not Drive - for 2 weeks or while taking narcotic pain meds., May Shower, May Take a Tub Bath - in 7 days. May resume sexual activity in: 4-6 weeks Lifting Restrictions: 20 pounds Additional Activity Instructions:: Nothing in the vagina for 4-6 weeks. You may return to work/school in 6 weeks. Call your doctor if your incision/area has: Continuous Slow Oozing, Sudden Increased Bleeding, Increased Pain/ Swelling, Increased Redness, Foul Smelling Discharge Call your doctor if you observe: Fever of 101 or Higher Suture Line Care: Avoid Pulling/Pushing, Avoid Pinching/Bending Additional Instructions: If you experience any of the following, contact your healthcare provider. * Bleeding that soaks a pad every hour for 2 hours * Fever 100.4 or higher * Unrelieved incision or abdominal pain * Swelling, redness, discharge or bleeding from your incision or episiotomy site * Your incision begins to separate * Problems urinating (including inability to urinate or burning while urinating). * Visual changes * Severe headache * Flu-like symptoms * Pain or redness in one of both of your breasts * Pain, warmth, tenderness or swelling in your legs, especially the calf area * Frequent nausea and vomiting * Symptoms of depression or anxiety If you experience any of the following, call 911 or go to the nearest Emergency Room. * Chest pain * Problems breathing * Seizure activity * Partial or complete paralysis of a body part, slurred speech, weakness or drooping of the face, or a sudden inability to walk or hold your balance Allergies/Adverse Reactions: Allergies No Known Allergies Allergy (Verified 04/26/18 14:02) Medications to take at Discharge Vits [Prenatabs FA ] 1 tablet PO DAILY@1200 04/26/18 Ferrous Sulfate 325 mg PO DAILY@0800 14 Days #14 tab 05/07/18 Naproxen [Naprosyn] 250 - 500 mg PO Q8H PRN PRN tablet 05/07/18 Oxycodone [Oxyir] 5 - 10 mg PO Q4H PRN PRN 7 Days #28 tab 05/07/18 The following prescriptions were given: Oxycodone [Oxyir] 5 - 10 mg PO Q4H PRN PRN 7 Days #28 tab PRN Reason: Mod-Severe Pain (4-10/10) Ferrous Sulfate 325 mg PO DAILY@0800 14 Days #14 tab Follow-Up: Call to make an appointment with your doctor for an incision check in 1-2 weeks. You will also need a 6 week post- follow up appointment. Test results from this visit will be discussed in further detail at your follow- up appointment, if applicable. Please Follow Up With: Liliana Dominguez MD Primary Care Physician: Care Physician,No Primary [Primary Care Provider] -
--- NOTE | 2018-05-07 09:02 | PCM.DC.SUM ---
Discharge Date and Diagnosis Date of Admission: 04/21/18 Date of Discharge: 05/07/18 - Primary Discharge Diagnosis Post-operative Repeat LTCS - Secondary Discharge Diagnosis Anemia Hospital Course and Treatment Operations: - - Repeat LTCS Procedures: None Summary of Care Provided: The patient is a 32 year old F and Gestational Diabetic s/p Rpt LTCS x3 with complication of anemia requiring blood transfusion. Patient is now stable with plans to discharge to home.] Discharge Diet: No Restrictions Discharge Activity: May Not Drive - for 2 weeks or while taking narcotic pain meds., May Shower, May Take a Tub Bath - in 7 days. May resume sexual activity in: 4-6 weeks Additional Activity Instructions:: Nothing in the vagina for 4-6 weeks. You may return to work/school in 6 weeks. Call your doctor if your incision/area has: Continuous Slow Oozing, Sudden Increased Bleeding, Increased Pain/ Swelling, Increased Redness, Foul Smelling Discharge Call your doctor if you observe: Fever of 101 or Higher Suture Line Care: Avoid Pulling/Pushing, Avoid Pinching/Bending Home Medications: Medications to take at Discharge Vits [Prenatabs FA ] 1 tablet PO DAILY@1200 04/26/18 Ferrous Sulfate 325 mg PO DAILY@0800 14 Days #14 tab 05/07/18 Naproxen [Naprosyn] 250 - 500 mg PO Q8H PRN PRN tablet 05/07/18 Oxycodone [Oxyir] 5 - 10 mg PO Q4H PRN PRN 7 Days #28 tab 05/07/18 Following Prescrptions Were Given to Patient: Oxycodone [Oxyir] 5 - 10 mg PO Q4H PRN PRN 7 Days #28 tab PRN Reason: Mod-Severe Pain (4-10/10) Ferrous Sulfate 325 mg PO DAILY@0800 14 Days #14 tab Primary Care Physician: Care Physician,No Primary [Primary Care Provider] - Please Follow Up With: Liliana Dominguez MD Medical Necessity - Tobacco Use Smoking Status: Former smoker Meaningful Use Info Meaningful Use Diagnoses (Choose all that apply): None applicable
--- NOTE | 2018-05-07 09:07 | PCM.PN.OB ---
Subjective: Patient is sitting up in bed without complaints. Reports pumping breastmilk at this time for baby as the baby easily tires when latched to the breast. Denies dizziness, ALEMAN, scotoma. Patient desires discharge to home today. Objective: Nipples without cracks or blisters, engorged breast with milk ducts in Rt. Axilla noted - nontender and without evidence of clogged ducts or warmth FF midline 1 FB below umbilicus Dressing dry and intact No edema in LE, no calf tenderness to palpation Scant rubra lochia - Physical Exam General: Alert, Oriented x3, Cooperative HEENT: Atraumatic, Normocephalic Neck: Supple Lungs: Normal air movement Cardiovascular: Regular rate Abdomen: Soft, Non Tender Extremities: No edema, Capillary Refill Less than 3 Seconds Skin: No rashes, No breakdown Musculoskeletal: No Tenderness to Palpation of Joints or Extremities Neurological: Cranial nerves II-XII grossly intact Psych/Mental Status: Normal Affect, Appropriate Vital Signs Temp Pulse Resp BP Pulse Ox 97.6 F L 98 16 129/75 H 99 05/07/18 01:51 05/07/18 01:51 05/07/18 01:51 05/07/18 01:51 05/06/18 19:30 Oxygen Delivery Method Room Air Weight: 246 lb 14.684 oz Body Mass Index (BMI) 37.5 Intake and Output for Last 24 Hours 05/05/18 05/06/18 05/07/18 23:59 23:59 23:59 Intake Total 470 / 470 Balance 470 / 470 Medical Necessity - Tobacco Use Smoking Status: Former smoker Assessment/Plan 32 y/o s/p LTCs x 3, Gestational Diabetic, Anemia requiring blood transfusion 1) Anticipate discharge to home today - teaching done 2) Patient to remove bandage across incision tomorrow - instructions provided 3) RTC in 1 weeks for BP and Incision Check Carmen ORANTES
[2018-05-07] MEDS: Docusate Sodium 100 MG Capsule PO (10:34)
[2018-05-07 13:45] VITALS: BP 137/82; PULSE 101; RESP 20; TEMP 36.8
== END 2018-05-07 14:05 | disposition home or self-care (01) | DRG 765 ==
PROVIDERS: Obstetrics & Gynecology; Admitting Provider Obstetrics & Gynecology; Visit Provider Obstetrics & Gynecology
DX: O60.14X0 Preterm labor third trimester with preterm delivery third trimester, not applicable or unspecified (principal); D62 Acute posthemorrhagic anemia; Z37.0 Single live birth; O99.02 Anemia complicating childbirth; O24.424 Gestational diabetes mellitus in childbirth, insulin controlled; O34.211 Maternal care for low transverse scar from previous cesarean delivery; Z3A.36 36 weeks gestation of pregnancy; Z79.4 Long term (current) use of insulin; Z87.891 Personal history of nicotine dependence
CPT/HCPCS: 59025; 59050; 82962; 85025; 85027; 86850; 86900; 86920; 88307; 99218; J7040; J7120; P9016; 90686; G0378